=== PATIENT | female | born 1945 | race Caucasian/White ===

== ENCOUNTER 2016-11-22 07:17 | Day surgery (SDC) | payer OTHER, MEDICARE ==
[2016-11-22] MEDS ORDERED: PHENYLEPHRINE 2.5% OPHTH 2 ML DROPS ONE (07:24)
[2016-11-22] MEDS ORDERED: PHENYLEPHRINE 2.5% OPHTH 2 ML DROPS OPTH ONE (07:40)
[2016-11-22] MEDS ORDERED: PROPARACAINE 0.5% OPHTH DROPS 15 ML OPTH ONE ×2 (07:40→08:20)
[2016-11-22] MEDS ORDERED: KETOROLAC 0.45% OPHTH DROPS RIGHTEYE ONE (07:40)
[2016-11-22] MEDS ORDERED: CYCLOPENTOLATE 1% OPHTH DROPS 2 ML RIGHTEYE ONE (07:40)
[2016-11-22] MEDS ORDERED: LACTATED RINGERS 1,000 ML IV ONE (08:15)
[2016-11-22] MEDS ORDERED: BSS/LIDOCAINE/EPINEPHRINE 1 ML SYRINGE IO ONE ×2 (08:20)
[2016-11-22] MEDS ORDERED: levoFLOXacin 0.5% OPHTH DROPS 5 ML OPTH ONE (08:20)
[2016-11-22] MEDS ORDERED: CHONDR SULF/HYALURONATE SYRINGE IO ONE (08:20)
[2016-11-22] MEDS ORDERED: BRIMONIDINE 0.2% OPHTH DROPS 5 ML OPTH ONE (08:20)
[2016-11-22] MEDS ORDERED: EPINEPHrine 1 MG/ML AMP IVP ONE (08:20)
[2016-11-22] MEDS ORDERED: TRIAMCIN/MOXIFLOX/VANCO 1 ML VIAL IO ONE ×2 (08:20)
[2016-11-22] MEDS ORDERED: MIDAZOLAM 2 MG/2 ML VIAL IVP ONE (08:30)
[2016-11-22] MEDS ORDERED: hydrALAZINE INJ 20 MG/ML VIAL IVP ONE (08:30)
== END 2016-11-22 07:18 | disposition home or self-care (01) ==
PROC: 08RJ3JZ Replacement of Right Lens with Synthetic Substitute, Percutaneous Approach (ICD-10-PCS; principal; 2016-11-22 08:45)
DX: H25.811 Combined forms of age-related cataract, right eye (principal); I10 Essential (primary) hypertension; Z88.2 Allergy status to sulfonamides; Z82.49 Family history of ischemic heart disease and other diseases of the circulatory system
CPT/HCPCS: 66984; A9270; J7120; V2632

== ENCOUNTER 2016-12-27 08:30 | Day surgery (SDC) | payer MEDICARE, OTHER ==
[~2016-12-27 08:30] MED LIST: PHENYLEPHRINE 2.5% OPHTH 2 ML DROPS ONE
[2016-12-27] MEDS ORDERED: CYCLOPENTOLATE 1% OPHTH DROPS 2 ML OPTH ONE ×2 (09:05→09:35)
[2016-12-27] MEDS ORDERED: KETOROLAC 0.45% OPHTH DROPS OPTH ONE (09:05)
[2016-12-27] MEDS ORDERED: PHENYLEPHRINE 2.5% OPHTH 2 ML DROPS OPTH ONE (09:05)
[2016-12-27] MEDS ORDERED: PROPARACAINE 0.5% OPHTH DROPS 15 ML OPTH ONE ×2 (09:05→09:35)
[2016-12-27] MEDS ORDERED: LACTATED RINGERS 1,000 ML IV ONE ×2 (09:08)
[2016-12-27] MEDS ORDERED: LACTATED RINGERS 500 ML IV ONE (09:12)
[2016-12-27] MEDS ORDERED: MIDAZOLAM 2 MG/2 ML VIAL IVP ONE (09:24)
[2016-12-27] MEDS ORDERED: LABETALOL 5 MG/1 ML 20 ML MDV IV ONE (09:24)
[2016-12-27] MEDS ORDERED: BSS/LIDOCAINE/EPINEPHRINE 1 ML SYRINGE IO ONE ×2 (09:35)
[2016-12-27] MEDS ORDERED: TIMOLOL 0.5% OPHTH DROPS OPTH ONE (09:35)
[2016-12-27] MEDS ORDERED: CHONDR SULF/HYALURONATE SYRINGE IO ONE (09:35)
[2016-12-27] MEDS ORDERED: EPINEPHrine 1 MG/ML AMP IVP ONE (09:35)
[2016-12-27] MEDS ORDERED: BRIMONIDINE 0.2% OPHTH DROPS 5 ML OPTH ONE (09:35)
[2016-12-27] MEDS ORDERED: TRIAMCIN/MOXIFLOX/VANCO 1 ML VIAL IO ONE ×2 (09:36)
== END 2016-12-27 08:31 | disposition home or self-care (01) ==
PROC: 08RK3JZ Replacement of Left Lens with Synthetic Substitute, Percutaneous Approach (ICD-10-PCS; principal; 2016-12-27 09:45)
DX: H25.812 Combined forms of age-related cataract, left eye (principal); I10 Essential (primary) hypertension; Z82.49 Family history of ischemic heart disease and other diseases of the circulatory system; Z88.2 Allergy status to sulfonamides
CPT/HCPCS: 66984; A9270; J7120; V2632